=== PATIENT | male | born 1990 | race Caucasian/White ===

== ENCOUNTER 2018-07-18 19:53 | Emergency (ER) | payer BC, SELFPAY ==
[2018-07-18 19:53] VITALS: BP 123/84; PULSE 114; RESP 16; TEMP 36.6; O2SAT 95; BMI 32.1
[2018-07-18] MEDS: HYDROcodone Bitartrate/Apap 5/325 Tablet PO (20:50)
[2018-07-18] MEDS: Naproxen 500 MG Tablet PO (20:51)
--- NOTE | 2018-07-18 21:11 | ED.VISSUMM ---
- ER Visit Summary Date of Service: 07/18/18 Chief Complaint: Left wrist pain History of Present Illness: The patient is a 27 M who has no primary care physician. He reports that he went to catch a baseball and his left wrist twisted awkwardly in the fence. He has a sharp, burning pain that is 10 out of 10 with movement 8 out of 10 at rest. Denies any paresthesias or weakness. Physical Examination: Vitals: Stable. Afebrile. Neck: No vertebral tenderness. Full ROM without difficulty. Cleared by NEXUS criteria. Back: No vertebral tenderness. General: A&O x 3. NAD. Cardiovascular exam: Regular rate and rhythm, no murmur, rub or gallop. Respiratory exam: Chest nontender. No crepitus. Clear to auscultation bilaterally. No wheezes or stridor. Abdominal exam: Soft, nontender, nondistended, normal bowel sounds. No pain in RUQ or LUQ specifically. No peritoneal signs. Extremity: Mild tenderness palpation over the dorsum of his forearm on the radial side. Moderate touch palpation is diffuse over the carpal bones. No soft tissue swelling or contusion. He is neurovascular intact distally. Test Results: Left wrist and forearm x-rays are negative. Emergency Department Course and Treatment: Patient was treated with [place] p.o. and placed in a Velcro wrist splint. Treatment Plan: Patient be discharged instructions for Dr. Dorian Velez in 1 week if not improving. He will be placed on naproxen at home. Disposition: To home in improved and stable condition. Impression: 1. Left wrist sprain. This note was generated with [employer] dictation software. It may contain incorrect words, spelling, and punctuation that were not noted in review of the chart prior to signing ED Disposition - Plan for ED Patient: Disposition: Home or Assisted Living Chief Complaint: Upper Extremity Injury Instructions: ED Sprain Wrist Prescriptions: Naproxen [Naprosyn] 500 mg PO BID #14 tablet Referrals: Dorian Velez MD [STAFF PHYSICIAN] - 1 Week if not improving
[2018-07-18 21:23] VITALS: BP 120/77; PULSE 87; RESP 16; O2SAT 97
== END 2018-07-18 21:35 | disposition home or self-care (01) ==
PROVIDERS: Emergency Provider Emergency Medicine
DX: S63.502A Unspecified sprain of left wrist, initial encounter (principal); X50.1XXA Overexertion from prolonged static or awkward postures, initial encounter; Y93.64 Activity, baseball; Y92.9 Unspecified place or not applicable; Y99.9 Unspecified external cause status
CPT/HCPCS: 73090; 73110; 99284

== ENCOUNTER 2019-12-20 23:34 | Emergency (ER) | payer BC, SELFPAY ==
[2019-12-20 23:35] VITALS: BP 131/79; PULSE 66; RESP 18; TEMP 36.8; O2SAT 98; BMI 33.7
--- NOTE | 2019-12-20 23:51 | US_ITS ---
STUDY: SCROTUM ULTRASOUND REASON FOR EXAM: Male, 29 years old. RT TESTICLE PAIN X 2 WEEKS NO SWELLING TECHNIQUE: Ultrasound evaluation of the scrotum was performed with color Doppler and static castaneda-scale imaging. COMPARISON: None. FINDINGS: RIGHT TESTICLE INTRATESTICULAR: There is a normal size of the right testicle. The right testicle measures 4.5 x 2.6 x 2 cm. There is a homogenous echotexture. There is normal arterial and normal venous vascularity. There is no demonstrated right testicular mass or cyst. EXTRATESTICULAR: The epididymis is normal in size. The epididymis head measures 0.9- x 0.8 x 0.6 cm. There is normal vascularity of the epididymis. There is no demonstrated epididymal cystic structure. There is a minimal hydrocele. There is no demonstrated varicocele. There is no demonstrated extratesticular mass or cyst. LEFT TESTICLE INTRATESTICULAR: There is a normal size of the left testicle. The left testicle measures 4.2 x 2.6 x 2.2 cm. There is a homogenous echotexture. There is normal arterial and normal venous vascularity. There is no demonstrated left testicular mass or cyst. EXTRATESTICULAR: The epididymis is normal in size. The epididymis head measures 0.9 x 0.9 x 0.6 cm. There is normal vascularity of the epididymis. There is a 3 mm cyst within the epididymis. There is no demonstrated hydrocele. There is a small varicocele.. There is no demonstrated extratesticular mass or cyst. US/Testicular with Arterial Flow IMPRESSION: Minimal right hydrocele 3 mm left epididymal cyst Small left varicocele Electronically Signed: Josef Maloney, at 0:42 EST Tel , Service support ,
--- NOTE | 2019-12-20 23:53 | ED.DCSUM_ITS ---
History of Present Illness Chief Complaint: Male Pain/Injury Narrative: Patient presents for the evaluation of right testicular pain. Patient states that symptoms began couple weeks ago and been intermittent. He denies any trauma. He denies any urinary symptoms such as dysuria or frequency. Denies fevers swelling or drainage. He states today the pain is been constant and unrelenting. He states that it is worse than it has been. He notes he had a prior right inguinal hernia repair when he was in high school. He is sexually active in a monogamous relationship. Past Medical History - Allergies and Home Meds Allergies/Adverse Reactions: Allergies morphine Allergy (Verified 12/20/19 23:37) Hives Primary Care Physician: Care Physician,No Primary [NON-STAFF] - Smoking Status: Never smoker Review of Systems General: Denies: Chills, Fever, Sweats Eyes: Denies: Visual changes - bilaterally, Diplopia ENT: Denies: Rhinorrhea, Sore throat Cardiovascular: Denies: Chest pain, Palpitations Respiratory: Denies: Dyspnea, Cough, Dyspnea on exertion Gastrointestinal: Denies: Abdominal pain, Nausea, Vomiting, Diarrhea, Melena, Hematochezia Genitourinary: Reports: - - Right testicular pain. Denies: Dysuria, Hematuria, Frequency Musculoskeletal: Denies: Back pain, Extremity Pain Skin: Denies: Rash, Wounds Neurological: Denies: Headache, Weakness, Numbness Physical Exam Vital Signs/Narrative: Vital Signs Temp Pulse Resp BP Pulse Ox 12/20/19 23:35 98.2 F 66 18 131/79 H 98 Inital Vital Signs reviewed: Yes General: Well nourished, Well developed, No Acute Distress Head: Normocephalic, Atraumatic Eyes: Perrl, EOMI ENT: Moist mucous membranes, No rhinorrhea Neck: Supple, Nontender Cardiovascular: Regular rate, Regular rhythm, No murmurs Respiratory: No distress, CTA bilaterally, Chest nontender Abdomen: Soft, Nontender, Nondistended, Normal bowel sounds : - - Patient reports tenderness to palpation of the right testicle particularly lateral and posteriorly. There is no obvious inguinal hernia felt. No drainage from the meatus. No significant swelling. Back: Nontender, Normal Inspection Extremities: Nontender, No edema Skin: Normal color, No rash Neurological: Alert, Oriented x3, Cranial nerves II-XII grossly intact, Normal Strength, Normal Sensation Psychological: Normal affect, Normal Mood Diagnostic/Tx/Re-eval - Medical Decision Making Patient received Toradol and [place]. Later he received a dose of Cipro. Urine specimen is normal. Ultrasound shows adequate blood flow to both testes. No increased flow to the epididymis or the testicles. There is a small hydrocele on the right. Clinically the patient presents as epididymitis will treat with Cipro. He has no risk factors for STD. Nor does he have any signs such as penile drainage or lesions. He will follow-up with Dr. Sprague from urology. He was instructed on ice and briefs. Scheduled anti-inflammatories. ED Disposition - Plan for ED Patient: Disposition: Home or Assisted Living Diagnosis: Right testicular pain Instructions: Epididymitis Prescriptions: Ciprofloxacin [Cipro] 500 mg PO BID #20 tab Prescription Printed Ibuprofen [Motrin] 800 mg PO TID #21 tab Prescription Printed Hydrocodone Bitart/Apap 5-325 [[place] 5MG-325MG] 1 tab PO Q6H PRN PRN 3 Days #12 tab PRN Reason: Pain Prescription Printed Referrals: Jamal Sprague MD [STAFF PHYSICIAN] - As soon as possible
[2019-12-21 00:10] LABS: Bacteria 0 SEEN /hpf (None Seen); Mucous, Urine 0 SEEN /hpf (<or=2+)
[2019-12-21] MEDS: HYDROcodone Bitartrate/Apap 5/325 Tablet PO (00:10)
[2019-12-21] MEDS: Ketorolac 60 MG/2 ML Vial IM (00:11)
[2019-12-21 00:13] LABS: Color, Urine Yellow (Yellow); Glucose, Dipstick Normal (Normal); Ketone-Dipstick 5 mg/dl (Negative); Leukocyte Esterase-Dipstick Negative /ul (Negative); Nitrite-Dipstick Negative (Negative); Occult Blood-Urine Negative /ul (Negative); Protein-Dipstick Negative (Negative); Specific Gravity, Urine 1.025 (1.002-1.030); Urine Bilirubin Dipstick Negative (Negative); Urine Clarity Clear (Clear); Urine Urobilinogen Normal (Normal)
[2019-12-21 00:20] LABS: Red Blood Cells-Urine 0-5 SEEN /hpf (0-5); Squamous Epithelial Cells - UA 0-5 SEEN /hpf (0-5); White Blood Cells 0-5 SEEN /hpf (0-5)
[2019-12-21] MEDS: Ciprofloxacin 500 MG Tablet PO (01:34)
[2019-12-21 01:40] VITALS: RESP 16
== END 2019-12-21 01:42 | disposition home or self-care (01) ==
LOC: ED 12-21 00:12
PROVIDERS: Emergency Provider Emergency Medicine; PCP Family Medicine; Referring Provider Family Medicine
DX: N50.811 Right testicular pain (principal); N43.3 Hydrocele, unspecified; Z88.5 Allergy status to narcotic agent
CPT/HCPCS: 76870; 81001; 93976; 96372; 99283

== ENCOUNTER → 2023-09-26 | Outpatient (CLI) | payer BC, SELFPAY ==
--- NOTE | 2023-09-26 10:15 | MRI_ITS ---
STUDY: MRI LUMBAR SPINE WITHOUT CONTRAST REASON FOR EXAM: Male, 32 years old. pain TECHNIQUE: Standardized fat and water weighted pulse sequences were obtained in the sagittal and axial planes. COMPARISON: X-ray the lumbar spine dated September 05, 2023 FINDINGS: Normal lumbar lordosis. There is no substantial scoliosis. Normal conus medullaris that terminates at the T12-L1 level. No marrow edema or fracture or compression deformity is seen. T12-L1: Normal endplates. Normal disc height, hydration and morphology. Normal bilateral facet joints. Normal central canal and bilateral lateral recesses. Normal bilateral intervertebral neural foramina. L1-2: Normal endplates. Normal disc height, hydration and morphology. Normal bilateral facet joints. Normal central canal and bilateral lateral recesses. Normal bilateral intervertebral neural foramina. L2-3: Normal endplates. Normal disc height, hydration and morphology. Normal bilateral facet joints. Normal central canal and bilateral lateral recesses. Normal bilateral intervertebral neural foramina. L3-4: Normal endplates. Normal disc height, hydration and morphology. Normal bilateral facet joints. Normal central canal and bilateral lateral recesses. Normal bilateral intervertebral neural foramina. L4-5: Mild anterior endplate spurring. Mild disc desiccation and disc space narrowing without bulging or herniation of the disc. Normal bilateral facet joints. Normal central canal and bilateral lateral recesses. Normal bilateral intervertebral neural foramina. L5-S1: Normal endplates. Normal disc height, hydration and morphology. Normal bilateral facet joints. Normal central canal and bilateral lateral recesses. Normal bilateral intervertebral neural foramina. Normal visualized sacral ala. Normal visualized paraspinous soft tissue structures. MRI/Spine Lumbar (Routine) IMPRESSION: 1. Mild degenerative disc disease at L4-L5. Electronically Signed: Arnoldo Cardoso MD at 14:49 EST ,
--- NOTE | 2023-09-26 12:51 | VDLE_ITS ---
Reason For Study: BLE Pain RIGHT LEFT CFV is compressible, spontaneous, phasic, CFV is compressible, phasic, and INCOMPETENT competent and demonstrates normal for greater than 1.0 second. augmentation. FV is compressible, phasic, and INCOMPETENT FV is compressible, spontaneous, phasic, for greater than 1.0 second. competent and demonstrates normal POP V is compressible, spontaneous, phasic, augmentation. competent and demonstrates normal POP V is compressible, spontaneous, phasic, augmentation. competent and demonstrates normal T/P Trunk is compressible. augmentation. PTV is compressible. T/P Trunk is compressible. LT PerV is compressible. PTV is compressible. SFJ is INCOMPETENT and measures 1.10 cm. RT PerV is compressible. GSV proximal thigh measures 1.16 x 1.25 cm. SFJ is INCOMPETENT and measures 0.99 cm. GSV at knee measures 1.02 x 1.11 cm. GSV proximal thigh measures 0.94 x 0.90 cm. GSV INCOMPETENT throughout for greater than GSV at knee measures 0.87 x 0.95 cm. 0.5 seconds. GSV INCOMPETENT throughout for greater than Perforating vessel dist calf is INCOMPETENT 0.5 seconds. for greater than 0.5 seconds and measures ASV proximal calf is INCOMPETENT for greater 0.60cm. than 0.5 seconds and measures 0.82 x 1.01 cm. Multiple varicosities noted throughout thigh ASV mid calf is INCOMPETENT for greater than and calf. 0.5 seconds and measures 0.61 x 0.70 cm. SSV proximal calf is competent and measures Perforating vessel dist calf is INCOMPETENT 0.54 x 0.57 cm. for greater than 0.5 seconds and measures 0.53cm Multiple varicosities noted throughout calf. SSV proximal calf is INCOMPETENT for greater than 0.5 seconds and measures 0.67 x 0.86 cm. Procedure Exam performed in department. The exam was diagnostic. VL/Venous Duplex US - Atilio Extrem Interpretation Summary Deep veins of the bilateral lower extremities are patent and compressible segme ntally. There is no evidence of bilateral lower extremity deep vein thrombosis. The bilateral great saphenous veins appear patent and compressible segmentally. Positive for reflux in the right saphenofemoral junction, great saphenous vein throughout, accessory saphenous vein in the calf, small saphenous vein. Positive for reflux in the left common femoral vein, femoral vein, saphenofemor al junction, great saphenous vein throughout, and distal calf slipcover cutter Ordering Physician: Rebecca Moore Referring Physician: Grey Rosenbaum Performed By: Sal Arevalo RVT
== END | disposition home or self-care (01) ==
LOC: MRI 09:43
PROVIDERS: PCP Family Medicine; Referring Provider Orthopaedic Surgery; Visit Provider Orthopaedic Surgery
DX: I83.893 Varicose veins of bilateral lower extremities with other complications (principal)
CPT/HCPCS: 72148; 93970

== ENCOUNTER 2024-01-05 06:35 | Day surgery (SDC) | payer BC, OTHER, SELFPAY ==
[2024-01-04 07:30] VITALS: BMI 36.6
--- OUTSIDE RECORDS SUMMARY | 2024-01-05 06:46 | XMS RPT_ITS | CCD ---
Author Name Unknown Address [address] [place] [address] Organization [facility] Care Team Providers Care Transportation Inspector Name Role Phone Pete Starks Unavailable Jamie Emanuel Unavailable Pete Starks MD Primary Care Provider [phone] Pete Starks MD Primary Care Provider Pete Starks MD Primary Care Provider PETE STARKS Primary Care Unavailable ZACHARY BRANNON Attending Unavailab le Allergies Allergy Classification Reported Allergen(s) Allergy Type Date of Onset Reaction(s) Facility Opioid Agonists (1 source) Morphine Drug Allergy Hives/Urticaria [facility] (9 sources) Morphine; Translations: [MORPHINE] Drug Allergy 04-10-2008 Hives [facility] Work Phone: Medications Current Medications Medication Drug Class(es) Dates Sig (Normalized) Sig (Original) ketorolac tromethamine 10 mg oral tablet (2 sources) Nonsteroidal Anti-inflammatory Drug, Cyclooxygenase Inhibitor Start: 08-29-2023 End: 09-03-2023 take 1 tablet by mouth every six hours for pain ketorolac (Toradol) 10 mg tablet Indications: Closed fracture of transverse process of lumbar vertebra, initial encounter ([facility]) , Lumbar radiculopathy Take 1 tablet (10 mg) by mouth every 6 hours if needed for moderate pain (4 - 6) for up to 5 days. 20 tablet 0 08/29/2023 09/03/2023 Active Completed/Discontinued Medications Medication Drug Class(es) Dates Sig (Normalized) Sig (Original) ibuprofen 600 mg oral tablet (1 source) Nonsteroidal Anti-inflammatory Drug Start: 11-03-2020 take 1 tablet by mouth every six hours IBU 600 mg oral tablet ; 1 tab(s) orally every 6 hours Quantity: 20 Refills: 0 Ordered: 03-Nov-2020 Cynthia Cheney Start: 03-Nov-2020 Generic Substitution Allowed Comments: Do not take this drug if you are .It is very important that you take or use this exactly as directed. Do not skip doses or discontinue unless directed by your doctor.May cause drowsiness or dizziness.Obtain medical advice before taking any non-prescription drugs as some may affect the action of this medication.Take with food or milk. Problems Active Problems Problem Classification Problem Date Documented Da te Episodic/Chronic Nonspecific chest pain (1 source) Chest pain; Translations: [Chest pain, unspecified] Episodic Other fractures (1 source) Closed fracture lumbar vertebra, transverse process ; Translations: [Unspecified fracture of unspecified lumbar vertebra, initial encounter for closed fracture] 08-29-2023 Episodic Other lower respiratory disease (1 source) Dyspnea; Translations: [Shortness of breath] Episodic Superficial injury; contusion (1 source) Contusion of scalp; Translations: [Contusion of face, scalp, and neck except eye(s)] 04-07-2021 Episodic Unclassified (2 sources) HEAD INJURY WITH NO LOC 04-07-2021 Past or Other Problems Problem Classification Problem Date Documented Da te Episodic/Chronic Spondylosis; intervertebral disc disorders; other back problems (8 sources) Chronic low back pain; Translations: [Chronic midline low back pain without sciatica] Onset: 05-18-2019 05-18-2019 Episodic Varicose veins of lower extremity (8 sources) Varicose veins of left lower limb; Translations: [Asymptomatic varicose veins of left lower extremity] Onset: 05-02-2012 Episodic Results Test Name Value Interpretation Reference Range Facil ity Vital Signs Date Time Vital Sign Value Performing Clinician Facility 08-29-2023 03:42-0400 Diastolic blood pressure 78 mm[Hg] Gianni Mccurdy DO Work Phone: [facility] 08-29-2023 03:42-0400 Heart rate 73 /min Gianni Mccurdy DO Work Phone: [facility] 08-29-2023 03:42-0400 Respiratory rate 18 /min Gianni Mccurdy DO Work Phone: [facility] 08-29-2023 03:42-0400 SaO2% (BldA) [Mass fraction] 95 % Gianni Mccurdy DO Work Phone: [facility] 08-29-2023 03:42-0400 Systolic blood pressure 113 mm[Hg] Gianni Mccurdy DO Work Phone: [phone] [place] [address] 08-29-2023 00:55-0400 Body height 180.3 cm Gianni Mccurdy DO Work Phone: [phone] [place] [address] 08-29-2023 00:55-0400 Body mass index (BMI) [Ratio] 36.26 kg/m2 Gianni Mccurdy DO Work Phone: [phone] [place] [address] 08-29-2023 00:55-0400 Body temperature 97.9 [degF] Gianni Mccurdy DO Work Phone: [phone] [place] [address] 08-29-2023 00:55-0400 Body weight 117.94 kg Gianni Mccurdy DO Work Phone: [phone] [place] [address] 03-17-2022 18:45-0400 Body temperature 97.9 [degF] Radha Podlogar RACK PUSHER.YARDER ENGINEER Work Phone: [facility] 03-17-2022 18:45-0400 Body weight 115.12 kg Radha Podlogar RACK PUSHER.YARDER ENGINEER Work Phone: [facility] 03-17-2022 18:45-0400 Diastolic blood pressure 78 mm[Hg] Radha Podlogar RACK PUSHER.YARDER ENGINEER Work Phone: [facility] 03-17-2022 18:45-0400 Heart rate 68 /min Radha Podlogar RACK PUSHER.YARDER ENGINEER Work Phone: [facility] 03-17-2022 18:45-0400 Respiratory rate 20 /min Radha Podlogar RACK PUSHER.YARDER ENGINEER Work Phone: [facility] 03-17-2022 18:45-0400 SaO2% (BldA) [Mass fraction] 98 % Radha Podlogar RACK PUSHER.YARDER ENGINEER Work Phone: [facility] 03-17-2022 18:45-0400 Systolic blood pressure 112 mm[Hg] Radha Scott APRN.YARDER ENGINEER Work Phone: [facility] Encounters Encounter Date Encounter Type Care Provider Facility Start: 09-29-2023 Chart abstracting Pete johns MD Work Phone: [facility] Start: 09-27-2023 Chart abstracting Pete johns MD Work Phone: [facility] Procedures Date Procedure Procedure Detail Performing Clinician Start: 08-29-2023 Ct lumbar spine w/o contrast material Gianni Roe Kaz PRICE Work Phone: Start: 08-15-2019 Adult depression screening assessment Radha Scott APRN.YARDER ENGINEER Work Phone: Plan of Treatment Date Care Activity Detail Author Start: 2041 Zoster Vaccines (1 of 2) Zoste r Vaccines (1 of 2) [facility] Start: 07-22-2023 Influenza vaccination Influenza Vacc ine (#1) [facility] Start: 11-21-2022 Depression Assessment Depression Ass essment [facility] Start: 07-22-2022 Influenza vaccination INFLUENZ A (Season Ended) [facility] Start: 03-17-2022 End: 05-17-2022 Fibrin D-dimer FEU [Mass/volume] in Platelet poor plasma D-DIMER Lab Routine SOB (shortness of breath) Expected: 03/17/2022, Expires: 05/17/2022 [facility] Work Phone: Immunizations Immunization Date Immunization Notes Care Provider Julien key 02-03-2017 influenza virus vaccine, unspecified formulation Zachary Brannon MD Work Phone: [facility] 08-23-2009 influenza virus vaccine, unspecified formulation Radha Scott RACK PUSHER.YARDER ENGINEER Work Phone: [facility] Work Phone: 09-26-2008 influenza virus vaccine, unspecified formulation Radha Scott RACK PUSHER.YARDER ENGINEER Work Phone: [facility] Work Phone: 06-16-1993 diphtheria, tetanus toxoids and pertussis vaccine Radha Podlogar RACK PUSHER.[facility] Work Phone: [facility] Work Phone: 06-16-1993 trivalent poliovirus vaccine, live, oral Radha Podlogar RACK PUSHER.[facility] Work Phone: [facility] Work Phone: 03-17-1993 haemophilus influenz ae type b vaccine, HbOC conjugate Radha Podlogar RACK PUSHER.[facility] Work Phone: [facility] Work Phone: 03-17-1993 measles, mumps and rubella virus vaccine Radha Podlogar RACK PUSHER.[facility] Work Phone: [facility] Work Phone: 06-16-1992 diphtheria, tetanus toxoids and pertussis vaccine Radha Podlogar RACK PUSHER.[facility] Work Phone: [facility] Work Phone: 06-16-1992 haemophilus influenz ae type b vaccine, HbOC conjugate Radha Podlogar RACK PUSHER.[facility] Work Phone: [facility] Work Phone: 04-17-1992 diphtheria, tetanus toxoids and pertussis vaccine Radha Podlogar RACK PUSHER.[facility] Work Phone: [facility] Work Phone: 04-17-1992 haemophilus influenz ae type b vaccine, HbOC conjugate Radha Podlogar RACK PUSHER.[facility] Work Phone: [facility] Work Phone: 04-17-1992 trivalent poliovirus vaccine, live, oral Radha Podlogar RACK PUSHER.[facility] Work Phone: [facility] Work Phone: 02-14-1992 diphtheria, tetanus toxoids and pertussis vaccine Radha Podlogar RACK PUSHER.[facility] Work Phone: [facility] Work Phone: 02-14-1992 haemophilus influenz ae type b vaccine, HbOC conjugate Radha Podlogar RACK PUSHER.YARDER ENGINEER Work Phone: [facility] Work Phone: 02-14-1992 trivalent poliovirus vaccine, live, oral Radha Podlogar RACK PUSHER.YARDER ENGINEER Work Phone: [facility] Work Phone: Payers Date Payer Category Payer Unknown [id number] 2022 Unknown 2019 Unknown [employer] PPO OOS [id number] 2019-Present [phone] [address] [place] [address] PPO [id number] Social History Date Type Detail Facility [facility] Tobacco smoking consumption unknown [facility] Start: 08-29-2023 Tobacco smoking stat [facility] Never smoked tobacco [facility] Start: 10-15-2020 End: 08-29-2023 Alcohol intake Current non-drinker of alcohol (finding) [facility] Start: 1990 Sex Assigned At Not on file [facility] Start: 03-07-2022 End: 03-17-2022 Exposure to SARS-CoV-2 (event) Unable to assess [facility] Work Phone: Start: 08-29-2023 Tobacco use and exposure Smokeless tobacco non-user [facility] Work Phone: Start: 08-29-2023 Alcohol intake Ex-drinker (finding) [facility] Work Phone: Start: 10-28-2020 End: 08-29-2023 Gender identity Not on file [facility] Start: 08-19-2023 End: 08-29-2023 Exposure to SARS-CoV-2 (event) Not sure [facility] Work Phone: Start: 10-28-2020 End: 08-29-2023 History of Social function [facility] Adult Depression Screening Assessment 0 [facility] Clinical Notes 03-17-2022 to 09-29-2023 Gretchen Davila Ma - 09/29/2023 10:24 AM Mark Bowles LPN - 09/27/2023 10:09 AM Svetlana Rodriguez LPN - 09/15/2023 4:29 PM Mark Winchester LPN - 09/06/2023 9:47 AM EDT Note Date & Type Note Facility 09-29-2023 Note HNO ID: [id number] Author: Gretchen Davila Ma Service: ? Author Type: ? Type: Progress Notes Filed: 09/29/2023 11:50 AM Note Text: View External Imaging - venous duplex US bilateral [ID [id number]] [facility] 09-29-2023 History of Presen t illness Narrative View External Imaging - venous duplex US bilateral [ID [id number]] documented in this encounter [facility] 09-27-2023 Note HNO ID: [id number] Author: Mark Brooke LPN Service: ? Author Type: ? Type: Progress Notes Filed: 09/29/2023 8:57 AM Note Text: Scan on 09/26/2023 2:54 PM by ProviderFrancis PA-C: MRI [facility] 09-27-2023 History of Presen t illness Narrative Scan on 09/26/2023 2:54 PM by ProviderFrancis PA-C: MRI documented in this encounter [facility] 09-15-2023 Note HNO ID: [id number] Author: Svetlana Robert LPN Service: ? Author Type: ? Type: Progress Notes Filed: 09/15/2023 4:29 PM Note Text: Scan on 09/15/2023 3:48 PM by ProviderFrancis PA-C: Consultation - Vascular Medicine/Vascular Surgery [facility] 09-15-2023 History of Presen t illness Narrative Scan on 09/15/2023 3:48 PM by ProviderFrancis PA-C: Consultation - Vascular Medicine/Vascular Surgery documented in this encounter [facility] 09-06-2023 Note HNO ID: [id number] Author: Mark Brooke LPN Service: ? Author Type: ? Type: Progress Notes Filed: 09/06/2023 8:57 PM Note Text: Scan on 09/05/2023 1:26 PM by ProviderFrancis PA-C: Consultation - Orthopedics [facility] 09-06-2023 History of Presen t illness Narrative Scan on 09/05/2023 1:26 PM by ProviderFrancis PA-C: Consultation - Orthopedics documented in this encounter [facility] 08-31-2023 Miscellaneous Notes Spoke with patient. Given message from provider's office. Patient verbalizes understanding. Mimi Cr RN Letter sent to [facility]. Written to return to work on 09/06 due to continued pain. 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 Will forward to PCP as FYI Patient calling to ask Dr. Brannon for work excuse letter for the rest of this week until he sees Dr. Turner, Spinal Surgery on Wednesday 09/05. He states he went back to work last night and was given a light duty assignment but after working his full shift his back pain is 7-8/10 after taking pain Prednisone and Tylenol. He is taking two extra strength Tylenol 500 mg every 6 hours with little relief. If agree, can send letter through My Chart. Mimi Cr, RN Patient is calling back in regards to this I did advise 48-72 hrs to review messaes Pt called and is notified of providers message and instructions. Pt states he already knows what he would have to do for light duty. 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 He states he doesn't know if he could stand it with his back hurting the way it still is. He is asking if provider would give him an excuse to have off this week until he gets to see Dr Turner. Please call and advise. Ana Bell RN I would have him speak with his employer about light duty. Pt had OV 08/29/23 for lower back pain. Pt reports he was given a work excuse to go back to work tonight (10 pm shift). Pt reports he sees neurology on 09/05/23. Pt reports he is still having a lot of back pain and walking is uncomfortable. Pt was given excuse to return to work on light duty. Pt reports there is a lot of lifting with job and nothing is necessarily light duty. Pt is concerned he will return to work and will have to do regular work and will mess up his back more. Pt is asking if work excuse can be extended. Please review and advise. Call pt back with provider message. Germania Whyte LPN documented in this encounter [facility] 08-29-2023 Note HNO ID: [id number] Author: Zachary Brannon MD Service: ? Author Type: Physician Type: Progress Notes Filed: 08/29/2023 9:02 PM Note Text: Chief Complaint Patient presents with: ER F/U: Needing referral for neuro surgeon HPI Cuate Sabillon II is a 32 year old male who presents here today for ER Follow Up.. Patient evaluated at ER in [place] last night and early this morning for c/o progressive right uppler lumbosacral region pain for about 1 week without pain or injury. Found to have chronic appearing fragmentation of right transfverse process of L1 vertebra with at least partially corticated margins. Transverse process fragment displaced superior and anterior to and abutting anterolateral egde of the right transverse process-pedicle junction. Could represent chronic fracture vs unfused apophysis. Also noted tiny central disc protrusion at L5-S1. Discharged home with toradol, medrol pack. Recommended he follow up with our office for neurosurgical referral. Since discharge, continues to have pain in his right lower back without radiation down his legs. Currently 01/28. Has not taken any prescribed rx today. Denies loss of bowel/bladder control, numbness in his groin, weakness in his legs. Denies history of MVA or high velocity injury to his lower back. Past medical history, appointments, medications, allergies reviewed. Previous Medical History PAST MEDICAL HISTORY Diagnosis Date Chronic midline low back pain without sciatica 05/18/2019 Inguinal hernia without mention of obstruction or gangrene, unilateral or unspecified, (not specified as recurrent) Methicillin susceptible Staphylococcus aureus in conditions classified elsewhere and of unspecified site 04/04/2008 Varicose veins of both lower extremities with pain 05/02/2012 Previous Surgical History PAST SURGICAL HISTORY Procedure Laterality Date LAPAROSCOPY SURG RPR INITIAL INGUINAL HERNIA 04/08/08 RIGHT Family History FAMILY HISTORY Problem Relation Age of Onset Diabetes Mother Hypertension Mother Lipids Mother Heart Father other (varicose veins) Father Patient Allergies ALLERGIES Allergen Reactions Morphine Hives Current Medications No current outpatient medications on file prior to visit. No current facility-administered medications on file prior to visit. Social History Social History Tobacco Use Smoking status: Never Smokeless tobacco: Never Substance Use Topics Alcohol use: No Drug use: No Review of Symptoms REVIEW OF SYSTEMS See HPI EXAM: BP 110/82 Pulse 86 Resp 16 Wt 119.6 kg (263 lb 9.6 oz) SpO2 95% BMI 36.76 kg/m? General Appearance: Well appearing, alert, in no acute distress, well-hydrated, well nourished.. Skin: Skin color, texture, turgor normal, no suspicious rashes or lesions. Back:no pain to palpation of vertebrae, good flexion and extension, good range of motion, no muscle tenderness, reflexes are 2+ and symmetric, motor and sensory appear to be normal, no evidence of scoliosis, Positive SLR on right. Health Maintenance List Hepatitis B Vaccine(1 of 3 - 3-dose series) Never done Covid-19 Vaccine(1) Never done DTaP,Tdap,Td Vaccine(5 - Tdap) due on 2002 Hepatitis C Screening Never done Depression Assessment Never done Influenza Vaccine(1) due on 07/22/2023 HIV Screening Completed HPV Vaccine Aged Out ASSESSMENT/PLAN: 1. Chronic right-sided low back pain without sciatica - ICD9: 724.2, 338.29, ICD10: M54.50, G89.29 (primary diagnosis) Chronic lower back pain with evidence of chronic transverse process fracture without cauda equina symptoms. Discussed holding NSAID while on steroids. Will refer to ortho spine Dr. Turner for further evaluation. Red flags for re-assessment reviewed with patient in detail. - CONSULT TO NEUROSURGERY - [facility] 2. Closed fracture of transverse process of lumbar vertebra, initial encounter ([facility]) - ICD9: 805.4, ICD10: S32.009A See above. - CONSULT TO NEUROSURGERY - [facility] Zachary Brannon MD [facility] 08-29-2023 Emergency department Note 32-year-old male presents with progressive pain in upper lumbosacral region on the right. Patient states he has had chronic back issues but the symptoms have worsened over the last several days. Patient denies any injury or heavy lifting. Patient denies any numbness or paresthesia. Patient denies any fever or chills. Patient denies any dysuria or hematuria. Patient was given Toradol 30 mg IM with some moderate improvement. I did go over the CAT scan findings with the patient. Patient will be discharged. History provided by: Patient and significant other gastrointestinal technician used: No Review of Systems Musculoskeletal: Positive for back pain. All other systems reviewed and are negative. Physical Exam Vitals and nursing note reviewed. Constitutional: General: He is not in acute distress. Appearance: He is well-developed. HENT: Head: Normocephalic and atraumatic. Eyes: Conjunctiva/sclera: Conjunctivae normal. Cardiovascular: Rate and Rhythm: Normal rate and regular rhythm. Heart sounds: No murmur heard. Pulmonary: Effort: Pulmonary effort is normal. No respiratory distress. Breath sounds: Normal breath sounds. Abdominal: Palpations: Abdomen is soft. Tenderness: There is no abdominal tenderness. Musculoskeletal: General: Tenderness (pain left lower lumbosacral region lateral to L1 and 2.) present. No swelling. Cervical back: Neck supple. Skin: General: Skin is warm and dry. Capillary Refill: Capillary refill takes less than 2 seconds. Neurological: Mental Status: He is alert. Psychiatric: Mood and Affect: Mood normal. Labs Reviewed - No data to display CT lumbar spine wo IV contrast Final Result There is chronic appearing fragmentation of the right transverse process of the L1 vertebra, with at least partially corticated margins and normal surrounding soft tissues, with the transverse process fragment displaced superior and anterior to and abutting the anterolateral edge of the right transverse process-pedicle junction (series 2, images 31-35; series 5, images 54-58); this could represent chronic fracture versus unfused apophysis. No evidence of acute fracture. Minor facet osteoarthropathy at L4-L5 and L5-S1. Trace degenerative retrolisthesis at L5-S1. Tiny central disc protrusion at L5-S1 without canal or foraminal narrowing. MACRO: None Signed by: Erik Brunson 08/29/2023 2:52 AM Dictation workstation: [id number] CT lumbar spine wo IV contrast Final Result There is chronic appearing fragmentation of the right transverse process of the L1 vertebra, with at least partially corticated margins and normal surrounding soft tissues, with the transverse process fragment displaced superior and anterior to and abutting the anterolateral edge of the right transverse process-pedicle junction (series 2, images 31-35; series 5, images 54-58); this could represent chronic fracture versus unfused apophysis. No evidence of acute fracture. Minor facet osteoarthropathy at L4-L5 and L5-S1. Trace degenerative retrolisthesis at L5-S1. Tiny central disc protrusion at L5-S1 without canal or foraminal narrowing. MACRO: None Signed by: Erik Brunson 08/29/2023 2:52 AM Dictation workstation: [id number] Procedures Diagnoses as of 08/29/23325 Closed fracture of transverse process of lumbar vertebra, initial encounter ([facility]) Lumbar radiculopathy Medical Decision Making Patient can take medication as prescribed. He has been instructed to speak to his family doctor for neurosurgical referral. If symptoms worsen return to ED. Problem List Items Addressed This Visit None Visit Diagnoses Closed fracture of transverse process of lumbar vertebra, initial encounter ([facility]) - Primary Relevant Medications ketorolac (Toradol) 10 mg tablet methylPREDNISolone (Medrol, Valdo,) 4 mg tablets Lumbar radiculopathy Relevant Medications ketorolac (Toradol) 10 mg tablet methylPREDNISolone (Medrol, Valdo,) 4 mg tablets DO Gianni Murray DO 08/29/23325 documented in this encounter [facility] Work Phone: 08-29-2023 Physician Emergency department Note 32-year-old male presents with progressive pain in upper lumbosacral region on the right. Patient states he has had chronic back issues but the symptoms have worsened over the last several days. Patient denies any injury or heavy lifting. Patient denies any numbness or paresthesia. Patient denies any fever or chills. Patient denies any dysuria or hematuria. Patient was given Toradol 30 mg IM with some moderate improvement. I did go over the CAT scan findings with the patient. Patient will be discharged. History provided by: Patient and significant other gastrointestinal technician used: No Review of Systems Musculoskeletal: Positive for back pain. All other systems reviewed and are negative. Physical Exam Vitals and nursing note reviewed. Constitutional: General: He is not in acute distress. Appearance: He is well-developed. HENT: Head: Normocephalic and atraumatic. Eyes: Conjunctiva/sclera: Conjunctivae normal. Cardiovascular: Rate and Rhythm: Normal rate and regular rhythm. Heart sounds: No murmur heard. Pulmonary: Effort: Pulmonary effort is normal. No respiratory distress. Breath sounds: Normal breath sounds. Abdominal: Palpations: Abdomen is soft. Tenderness: There is no abdominal tenderness. Musculoskeletal: General: Tenderness (pain left lower lumbosacral region lateral to L1 and 2.) present. No swelling. Cervical back: Neck supple. Skin: General: Skin is warm and dry. Capillary Refill: Capillary refill takes less than 2 seconds. Neurological: Mental Status: He is alert. Psychiatric: Mood and Affect: Mood normal. Labs Reviewed - No data to display CT lumbar spine wo IV contrast Final Result There is chronic appearing fragmentation of the right transverse process of the L1 vertebra, with at least partially corticated margins and normal surrounding soft tissues, with the transverse process fragment displaced superior and anterior to and abutting the anterolateral edge of the right transverse process-pedicle junction (series 2, images 31-35; series 5, images 54-58); this could represent chronic fracture versus unfused apophysis. No evidence of acute fracture. Minor facet osteoarthropathy at L4-L5 and L5-S1. Trace degenerative retrolisthesis at L5-S1. Tiny central disc protrusion at L5-S1 without canal or foraminal narrowing. MACRO: None Signed by: Erik Brunson 08/29/2023 2:52 AM Dictation workstation: [id number] CT lumbar spine wo IV contrast Final Result There is chronic appearing fragmentation of the right transverse process of the L1 vertebra, with at least partially corticated margins and normal surrounding soft tissues, with the transverse process fragment displaced superior and anterior to and abutting the anterolateral edge of the right transverse process-pedicle junction (series 2, images 31-35; series 5, images 54-58); this could represent chronic fracture versus unfused apophysis. No evidence of acute fracture. Minor facet osteoarthropathy at L4-L5 and L5-S1. Trace degenerative retrolisthesis at L5-S1. Tiny central disc protrusion at L5-S1 without canal or foraminal narrowing. MACRO: None Signed by: Erik Brunson 08/29/2023 2:52 AM Dictation workstation: [id number] Procedures Diagnoses as of 08/29/23 0326 Closed fracture of transverse process of lumbar vertebra, initial encounter ([facility]) Lumbar radiculopathy Medical Decision Making Patient can take medication as prescribed. He has been instructed to speak to his family doctor for neurosurgical referral. If symptoms worsen return to ED. Problem List Items Addressed This Visit None Visit Diagnoses Closed fracture of transverse process of lumbar vertebra, initial encounter ([facility]) - Primary Relevant Medications ketorolac (Toradol) 10 mg tablet methylPREDNISolone (Medrol, Valdo,) 4 mg tablets Lumbar radiculopathy Relevant Medications ketorolac (Toradol) 10 mg tablet methylPREDNISolone (Medrol, Valdo,) 4 mg tablets DO Gianni Murray DO 08/29/23 0326 [facility] Work Phone: 03-22-2022 Miscellaneous Notes Spoke with pt and information listed below given. Pt verbalizes understanding. Pt states he will get the lab repeated in the next day or two. Drea Edward LPN TC to patient with no answer. Left message to return call to office and ask to speak with a nurse. FRANCISCO J King Called and left a voicemail for the Patient to call back and ask for a nurse to receive the providers message. Ana Bell RN Please call patient and let him know his chest xray is normal. Please ask him if he is going to get his blood work completed? Radha Scott APRN.OLEG documented in this encounter [facility] 03-17-2022 History of Presen t illness Narrative 03/17/2022 Patient presents with: Shortness of Breath: x2 weeks SUBJECTIVE: This is a 31 year old that is here today for Above Complaints.. Reports the last couple weeks having periods of having difficulty catching his breath. Can happen when he is sitting or active. He is concerned he has a pulmonary blood clot because he has varicose veins and he has a family hx of a blood clots. Admits to pain at times with deep inspiration in his right chest and side of abdomen. Admits to periods of right sided chest pain, however he reports this is not new and has had these pains since childhood. Pain described a stabbing and last for a few seconds. Normally resolves after he stretches. Some times he can feel SOB with this chest pain , but it only lasts for seconds as well. Denies recent hx of COVID-19, increasing chest pain from his baseline, dyspnea, jaw/back pain, diaphoresis, palpitations or nausea Clinically suspected DVT? (+3)= 0 Alternative diagnosis is less likely than PE (+3)?= 1 Heart Rate >100bpm? (+1.5)= 0 Immobilization/surgery in previous four weeks? 0 History of DVT or PE (1.5+)=0 Hemoptysis? (+1)=0 Malignancy (treatment for within 6 months, palliative +1)=0 TOTAL SCORE: 1 Interpretation: Traditional Score >6.0 - High (probability 59% based on pooled data) Score 2.0 to 6.0 - Moderate (probability 29% based on pooled data) Score <2.0 - Low (probability 15% based on pooled data) Alternate interpretation Score > 4 - PE likely. Consider diagnostic imaging. Score 4 or less - PE unlikely. Consider D-dimer to rule out PE. PAST MEDICAL HISTORY Diagnosis Date Chronic midline low back pain without sciatica 05/18/2019 Inguinal hernia without mention of obstruction or gangrene, unilateral or unspecified, (not specified as recurrent) Methicillin susceptible Staphylococcus aureus in conditions classified elsewhere and of unspecified site 04/04/2008 Varicose veins of both lower extremities with pain 05/02/2012 ALLERGIES Morphine MEDICATIONS No current outpatient medications on file. No current facility-administered medications for this visit. Medications and allergies reviewed by this provider. SOCIAL HISTORY Social History Tobacco Use Smoking status: Never Smoker Smokeless tobacco: Never Used Substance Use Topics Alcohol use: No Drug use: No REVIEW OF SYSTEMS All other reviewed and negative other than HPI. OBJECTIVE: BP 112/78 Pulse 68 Temp 36.6 C (97.9 F) Resp 20 Wt 115.1 kg (253 lb 12.8 oz) SpO2 98% BMI 35.40 kg/m . Vital signs reviewed by this provider. APPEARANCE Well appearing, alert, in no acute distress, well-hydrated, well nourished. EYES PERRLA, conjunctiva and sclera normal. HEART RRR with normal S1 and S2, no murmurs, no gallops, no JVD appreciated LUNG clear to auscultation. No wheezes, rhonchi, or rales EXTREMITIES Left lower leg larger than right and has scattered large varicose veins- patient reports this is normal. He denies calf tenderness and negative Homans' . There is no erythema or excessive warmth to LLE COVID-19 VACCINE(1) Never done DTAP,TDAP,TD(5 - Tdap) due on 2002 HEPATITIS C SCREENING Never done DEPRESSION SCREENING due on 08/15/2020 INFLUENZA(Season Ended) due on 07/22/2022 HIV SCREENING Completed MENINGOCOCCAL CONJUGATE Aged Out ASSESSMENT/PLAN: 1. SOB (shortness of breath) - ICD9: 786.05, ICD10: R06.02 (primary diagnosis) - no red flag symptoms or exam findings - red flag symptoms discussed, verbalizes understanding - D-DIMER - XR CHEST 2V FRONTAL/LAT - follow-up pending testing to ER with red flag symptoms 2. Chest pain, unspecified type - ICD9: 786.50, ICD10: R07.9 Atypical chest pain, symptoms are not consistent with cardiac ischemia due to nonexertional nature of symptom and localization of the pain possible etiology include Costochondritis/chest wall pain and musculoskeletal - since this is been ongoing for so many years would not think this is related to his shortness of breath - no red flag symptoms or exam findings - red flag symptoms discussed, verbalizes understanding - Electrocardiogram: An ECG today showed sinus bradycardia at 55 BPM, RI interval 178 ms, normal QRS, normal ST-T, QT 431 ms - Chest X-ray today. - follow-up pending testing to ER with red flag symptoms 3. Varicose veins of left lower extremity, unspecified whether complicated - ICD9: 454.9, ICD10: I83.92 - recommend he wear compression hose daily Radha Scott APRN.YARDER ENGINEER Prescription instructions reviewed with patient as applicable. Patient advised if symptoms do not improve or if symptoms worsen sooner, to contact their primary care physician. Potential red flag symptoms discussed with the patient. Reviewed appropriate action plan to take if red flag symptoms occur. Patient agreeable to treatment plan. documented in this encounter [facility] Diagnosis Closed fracture of transverse process of lumbar vertebra, initial encounter ([facility])- Primary Lumbar radiculopathy Thoracic or lumbosacral neuritis or radiculitis, unspecified documented in this encounter [facility] Work Phone: Reason for referral (narrative)* Consultation (Routine) - Pending Review Specialty Diagnoses / Procedures Referred By Christopher gómez Referred To Contact Family Medicine / Primary Care Procedures RI OFFICE/OUTPATIENT NEW HIGH MDM 60-74 MINUTES Gianni Mccurdy, [address] [place] [address] Referral ID Status Reason Start Date Expiration Date Visits Requested Visits Authorized [id number] Pending Review Specialty Services Required 08/29/2023 02/25/2024 1 1 [facility] Work Phone: Summary Purpose Family History No Family History Records FoundNo Family History Records Found Advance Directives No Advanced Directives Records FoundNo Advanced Directives Records Found Additional Source Comments <item> Privacy Markings (unrecogniz ed section and content) Section Author: Nancy Beck PROHIBITION ON REDISCLOSURE OF CONFIDENTIAL INFORMATION This notice accompanies a disclosure of information concerning a client made to you with the consent of such client. (unrecognized sect ion and content) No Status Records FoundNo Status Records Found INFORMATION SOURCE (unrecogn ized section and content) DATE CREATED AUTHOR AUTHOR'S ORGANIZ ATION 10/01/2023 [facility] Source Comments (unrecognize d section and content) In the event this informatio n is protected by the Federal Confidentiality of Alcohol and Drug Abuse Patient Records regulations: The Federal rules restrict any use of the information to criminally investigate or prosecute any alcohol or drug abuse patient.[facility] the event this information is protected by the Federal Confidentiality of Alcohol and Drug Abuse Patient Records regulations: The Federal rules restrict any use of the information to criminally investigate or prosecute any alcohol or drug abuse patient.[facility] the event this information is protected by the Federal Confidentiality of Alcohol and Drug Abuse Patient Records regulations: The Federal rules restrict any use of the information to criminally investigate or prosecute any alcohol or drug abuse patient.[facility] the event this information is protected by the Federal Confidentiality of Alcohol and Drug Abuse Patient Records regulations: The Federal rules restrict any use of the information to criminally investigate or prosecute any alcohol or drug abuse patient.[facility] the event this information is protected by the Federal Confidentiality of Alcohol and Drug Abuse Patient Records regulations: The Federal rules restrict any use of the information to criminally investigate or prosecute any alcohol or drug abuse patient.[facility] the event this information is protected by the Federal Confidentiality of Alcohol and Drug Abuse Patient Records regulations: The Federal rules restrict any use of the information to criminally investigate or prosecute any alcohol or drug abuse patient.[facility] the event this information is protected by the Federal Confidentiality of Alcohol and Drug Abuse Patient Records regulations: The Federal rules restrict any use of the information to criminally investigate or prosecute any alcohol or drug abuse patient.[facility] Reason for Visit (unrecogniz ed section and content) Reason Comments Results Reason Comments Back Pain Patient ambulatory t o ED with c/o lower back pain, noticed upon awakening yesterday. Denies injury or fall. Reports ongoing back issues in which he is treated by chiropractor for many years. C/o pain radiating up spine. Denies bowel or bladder incontinence. Denies paresthesia. Reason Comments back pain continues Reason Comments Outside Ortho Reason Comments Outside Vascular Surgery Reason Comments Outside Imaging Care Teams (unrecognized sec tion and content) Transportation Inspector Relationship Specialty Start Date End Date Pete Starks MD [address] [place], [place] [id number] PCP - General Family Practice 07/25/18 Transportation Inspector Relationship Specialty Start Date End Date Pete Starks MD [address] [place] [address] [phone] PCP - General 04/05/21 Transportation Inspector Relationship Specialty Start Date End Date Pete Starks MD [address] [place], [place] [phone] PCP - General Family Medicine 07/25/18 Transportation Inspector Relationship Specialty Start Date End Date Pete Starks MD [address] [place], [place] [phone] PCP - General Family Medicine 07/25/18 Transportation Inspector Relationship Specialty Start Date End Date Pete Starks MD [address] [place], [place] [phone] PCP - General Family Medicine 07/25/18 Scheduled Active and Recently Administ ered Medications (unrecognized section and content) FOR RECORDS PERTAINING TO PATIENTS WHO ARE OR HAVE BEEN ENROLLED IN A CHEMICAL DEPENDENCY/SUBSTANCEABUSE PROGRAM, SOME INFORMATION MAY BE OMITTED. This clinical summary was aggregated from multiple sources. Caution should be exercised in using it in the provision of clinical care. This summary normalizes information from multiple sources, and as a consequence, information in this document may materially change the coding, format and clinical context of patient data. In addition, data may be omitted in some cases. CLINICAL DECISIONS SHOULD BE BASED ON THE PRIMARY CLINICAL RECORDS. [facility]. provides no warranty or guarantee of the accuracy or completeness of information in this document.
[2024-01-05 07:02] LABS: Hematocrit 47.7 % (40-54); Hemoglobin 16.2 g/dL (13.0-16.5); Mean Corpuscular Hgb 28.6 pg (27.0-32.0); Mean Corpuscular Volume 84.1 fL (80-94); Mean Platelet Vol. 10.1 fl (6.2-12.0); Platelet Count 257 K/mm3 (150-450); RBC Distribution Width CV 11.8 % (11.6-14.6); RBC Distribution Width SD 35.6 fl (35.1-43.9); Red Blood Count 5.67 M/mm3 (4.6-6.2); White Blood Count 9.4 K/mm3 (4.4-11.0)
[2024-01-05 07:16] LABS: Anion Gap 5 (5-15); BUN 10 mg/dL (7-18); BUN/Creat Ratio 9.7 RATIO (10-20); Calcium,Total 9.2 mg/dL (8.5-10.1); Chloride 112 mmol/L (98-107); Creatinine, Serum 1.03 mg/dL (0.70-1.30); EST Glomerular Filtration Rate 89 mL/min (>60); Est Glom Filt Rate - Afr Amer 108 mL/min (>60); Estimated Creatinine Clearance 135.29 ml/min; Glucose 107 mg/dL (74-106); Potassium 4.4 mmol/L (3.5-5.1); Sodium Level 141 mmol/L (136-145)
--- NOTE | 2024-01-05 08:05 | PCM.HP.STD ---
HPI - General HPI Narrative JOSEPH THURMAN, is a 33 M who presents with bilateral varicose veins refractory to compression. He has both deep and superficial reflux. He presents for venogram [facility] Medical History Varicose vein of leg Venous insufficiency Home Medications ibuprofen 800 mg tablet 800 mg PO TID #21 tabs 12/21/19 [Rx Last Taken Unknown] acetaminophen 500 mg tablet (Tylenol Extra Strength) 500 mg PO Q6H PRN pain 09/05/23 [History Last Taken Unknown] dupilumab 300 mg/2 mL subcutaneous syringe (Dupixent) 300 mg subcut Q2W 11/23/23 [History Last Taken Unknown] Allergy/AdvReac Type Severity Reaction Status Date / Time morphine Allergy Hives Verified 11/23/23 15:07 Family History Father Blood clot in leg Pulmonary embolism Surgical History Hx of hernia repair Social History Smoking Status: Never smoker ROS Constitutional Constitutional: Denies chills, fever(s), frequent falls, lethargy or weakness Eyes Eyes: Denies blind spots, change in vision or loss of vision ENT HEENT: Denies bleeding gums, hoarseness or sore throat Cardiovascular Cardiovascular: Denies abdominal pain, bluish discoloration of hand/feet, chest pain with activity, claudication, cold extremities, cyanosis, dyspnea on exertion, erythema on extremities, irregular heart rhythm, leg edema, leg ulcers, numbness in extremities or weakness in extremities Respiratory/Chest Respiratory/Chest: Denies cough, excessive phlegm production, shortness of breath at rest, shortness of breath with exertion or wheezing Gastrointestinal Gastrointestinal: Denies anorexia, change in stool character, constipation, diarrhea, melena or rectal bleeding Genitourinary Genitourinary: Denies dysuria or hematuria Musculoskeletal Musculoskeletal: Denies abnormal gait Integumentary Integumentary: Reports other Details: ; Denies erythema, non-healing lesions or wounds Neurologic Neurologic: Denies abnormal speech, focal weakness, headache(s), loss of vision, numbness, paresthesias or sensory deficit Hematologic/Lymphatic Hematologic/Lymphatic: Denies easy bleeding, easy bruising or lymphadenopathy Vital Signs Vital Signs Vital Signs: Weight Weight: 263 lb Body Mass Index (BMI) 36.6 Physical Exam Const alert, oriented x3, no apparent distress and healthy appearing General Appearance: cooperative; Negative for combative or lethargic Orientation / Consciousness: awake Exam Limitations: no limitations HEENT Head and Scalp: normocephalic and atraumatic Eyes EOMs intact bilaterally General Eye: normal appearance of both eyes Neck full ROM, no lymphadenopathy, thyroid normal and No no carotid bruits General: trachea midline; Negative for lymphadenopathy or tenderness Thyroid: thyroid normal Lymph Lymphatic: Negative for no lymphadenopathy noted Resp normal respiratory effort and no use of accessory muscles Effort and Inspection: Negative for labored, stridor or audible wheezes Cardio regular rate and regular rhythm Back/Spine Cervical Spine: cervical ROM normal Extremity full ROM, normal capillary refill and no clubbing, cyanosis or edema Skin no rashes or lesions noted and no wounds Neuro oriented x3, CN's II-XII intact bilaterally, no focal motor deficits and no sensory deficits noted Psych thought process normal, cooperative, affect normal, speech normal and activity/motor behavior normal Results Lab / Micro Data 01/05/24 06:51 01/05/24 06:51 Labs: Laboratory Results - last 24 hr 01/05/24 06:51: WBC 9.4, RBC 5.67, Hgb 16.2, Hct 47.7, MCV 84.1, MCH 28.6, MCHC 34.0, RDW Std Deviation 35.6, RDW Coeff of Eli 11.8, Plt Count 257, MPV 10.1, Sodium 141, Potassium 4.4, Chloride 112 H, Carbon Dioxide 24.0, Anion Gap 5, BUN 10, Creatinine 1.03, Estim Creat Clear Calc 135.29, Est GFR (MDRD) Af Amer 108, Est GFR (MDRD) Non-Af 89, BUN/Creatinine Ratio 9.7 L, Glucose 107 H, Calcium 9.2 Assessment & Plan Assessment/Plan (1) Venous insufficiency: PLAN: -venogram
--- NOTE | 2024-01-05 10:39 | PCM.OPRPT ---
Report of Operation Date of Procedure: 01/05/24 Pre-Operative Diagnosis: venous insufficiency Post-Operative Diagnosis: same Surgery/Procedure Performed:: venogram IVC IVUS IVC, bilateral common/external iliac veins Surgeon: Ramos Thayer Type of Anesthesia: Local and Sedation,Conscious Estimated Blood Loss (mL): 1 Description of Procedure: HPI: Patient is a 33-year-old male with longstanding bilateral lower extremity painful varicose veins which are refractory to compression therapy. Prior reflux studies revealed reflux in the superficial system bilaterally as well as the deep system on the left. Given the extent and distribution of his reflux he is taken now for venogram to assess for central venous obstruction. Description of procedure: Upon obtaining informed consent and verification correct patient procedure site patient was taken to Director Of Home Economics where he was positioned prepped and draped in usual sterile fashion. Timeout was performed and conscious sedation ministered Versed and fentanyl. Skin overlying the left common femoral vein was anesthetized with 1% lidocaine the vessel accessed with a micropuncture needle wire under ultrasound guidance. This was exchanged for micropuncture sheath routine injection ilio caval venogram was performed which confirmed satisfactory position no extravasation dissection. Through this a Bentson wire advanced and the micropuncture sheath exchanged for a 10 [place] sheath. Through this a intravascular shunt probe was advanced and recorded pullback performed of the IVC, left common iliac vein, left external iliac vein. Appear to be at least some mild compression so the skin overlying the right common femoral. Muscle rhythm without lidocaine the vessel accessed with a micropuncture needle wire. This then changed out for micropuncture sheath through which injection ilio venogram was performed which revealed satisfactory extravasation of dissection. Both iliac veins had normal caliber appearance but obvious retrograde flow consistent with reflux. Through the micro sheath a J-wire to the micro sheath exchanged for an 8 [place] sheath. Intravascular shunt probe was then withdrawn from the left femoral access and into the right femoral access and an intravascular ultrasound recorded pullback was performed of the IVC, right common iliac, right external leg vein. This revealed no significant compression. Most severe compression on the left side was 30% stenosis of the common iliac vein just below the confluence. There was a segment of fibula significantly dilated iliac vein more inferior to this but this was felt to be more likely due to bad reflux and venous hypertension rather than obstructive venous hypertension. The overall caliber at the area of maximum compression was actually nearly normal compared to average common iliac vein diameter. Is felt that none of this warranted intervention so wires and catheters withdrawn. Silk suture then placed at the access sites and the sheath withdrawn followed by 5 minutes of manual pressure. Patient was taken recovery room for bedrest prior to discharge home.
== END 2024-01-05 11:00 | disposition home or self-care (01) ==
PROVIDERS: PCP Family Medicine; Referring Provider Surgery Trauma Surgery; Visit Provider Surgery Trauma Surgery
DX: I87.2 Venous insufficiency (chronic) (peripheral) (principal); I83.813 Varicose veins of bilateral lower extremities with pain
CPT/HCPCS: 36005; 36010; 36415; 37252; 37253; 75820; 75825; 76937; 80048; 85027; 99152; 99153; C1753; C1894; J7040; C1769

== ENCOUNTER 2024-03-01 08:19 | Day surgery (SDC) | payer BC, OTHER, SELFPAY ==
[2024-02-29 14:02] VITALS: BMI 36.9
[2024-03-01 08:51] LABS: Anion Gap 4 (5-15); BUN 13 mg/dL (7-18); BUN/Creat Ratio 14.9 RATIO (10-20); Chloride 110 mmol/L (98-107); Creatinine, Serum 0.87 mg/dL (0.70-1.30); EST Glomerular Filtration Rate 107 mL/min (>60); Est Glom Filt Rate - Afr Amer 130 mL/min (>60); Estimated Creatinine Clearance 160.79 ml/min; Glucose 113 mg/dL (74-106); Potassium 4.1 mmol/L (3.5-5.1); Sodium Level 138 mmol/L (136-145)
--- NOTE | 2024-03-01 10:07 | HP.PCM_ITS ---
HPI - General HPI Narrative JOSEPH THURMAN, is a 33 M who presents with painful left lower extremity varicose veins. He has both deep and superficial reflux and imaging of the central system did not reveal any obstruction. He presents now for chemical ablation. [facility] Medical History Varicose vein of leg Venous insufficiency Home Medications ibuprofen 800 mg tablet 800 mg PO TID #21 tabs 12/21/19 [Rx Last Taken Unknown] acetaminophen 500 mg tablet (Tylenol Extra Strength) 500 mg PO Q6H PRN pain 09/05/23 [History Last Taken Unknown] dupilumab 300 mg/2 mL subcutaneous syringe (AvesthagenixRUSBASE) 300 mg subcut Q2W 11/23/23 [History Last Taken Unknown] Allergy/AdvReac Type Severity Reaction Status Date / Time morphine Allergy Hives Verified 01/23/24 15:30 Family History Father Blood clot in leg Pulmonary embolism Surgical History Hx of hernia repair Social History Smoking Status: Never smoker ROS Constitutional Constitutional: Denies chills, fever(s), frequent falls, lethargy or weakness Eyes Eyes: Denies blind spots, change in vision or loss of vision ENT HEENT: Denies bleeding gums, hoarseness or sore throat Cardiovascular Cardiovascular: Denies abdominal pain, bluish discoloration of hand/feet, chest pain with activity, claudication, cold extremities, cyanosis, dyspnea on exertion, erythema on extremities, irregular heart rhythm, leg edema, leg ulcers, numbness in extremities or weakness in extremities Respiratory/Chest Respiratory/Chest: Denies cough, excessive phlegm production, shortness of breath at rest, shortness of breath with exertion or wheezing Gastrointestinal Gastrointestinal: Denies anorexia, change in stool character, constipation, diarrhea, melena or rectal bleeding Genitourinary Genitourinary: Denies dysuria or hematuria Musculoskeletal Musculoskeletal: Denies abnormal gait Integumentary Integumentary: Reports other Details: ; Denies erythema, non-healing lesions or wounds Neurologic Neurologic: Denies abnormal speech, focal weakness, headache(s), loss of vision, numbness, paresthesias or sensory deficit Hematologic/Lymphatic Hematologic/Lymphatic: Denies easy bleeding, easy bruising or lymphadenopathy Vital Signs Vital Signs Vital Signs: Weight Weight: 265 lb Body Mass Index (BMI) 36.9 Physical Exam Const alert, oriented x3, no apparent distress and healthy appearing General Appearance: cooperative; Negative for combative or lethargic Orientation / Consciousness: awake Exam Limitations: no limitations HEENT Head and Scalp: normocephalic and atraumatic Eyes EOMs intact bilaterally General Eye: normal appearance of both eyes Neck full ROM, no lymphadenopathy, thyroid normal and No no carotid bruits General: trachea midline; Negative for lymphadenopathy or tenderness Thyroid: thyroid normal Lymph Lymphatic: Negative for no lymphadenopathy noted Resp normal respiratory effort, no use of accessory muscles and clear to auscultation bilaterally Effort and Inspection: Negative for labored, stridor or audible wheezes Cardio regular rate and regular rhythm Back/Spine Cervical Spine: cervical ROM normal Extremity full ROM, normal capillary refill and no clubbing, cyanosis or edema Skin no rashes or lesions noted and no wounds Neuro oriented x3, CN's II-XII intact bilaterally, no focal motor deficits and no sensory deficits noted Psych thought process normal, cooperative, affect normal, speech normal and activity/motor behavior normal Results Lab / Micro Data 03/01/24 08:29 Labs: Laboratory Results - last 24 hr 03/01/24 08:29: Sodium 138, Potassium 4.1, Chloride 110 H, Carbon Dioxide 24.0, Anion Gap 4 L, BUN 13, Creatinine 0.87, Estim Creat Clear Calc 160.79, Est GFR (MDRD) Af Amer 130, Est GFR (MDRD) Non-Af 107, BUN/Creatinine Ratio 14.9, Glucose 113 H, Calcium 9.0 Assessment & Plan Assessment/Plan (1) Varicose veins of left lower extremity with pain: PLAN: -plan left chemical ablation
--- NOTE | 2024-03-01 11:48 | PCM.OPRPT ---
Report of Operation Date of Procedure: 03/01/24 Pre-Operative Diagnosis: varicose veins with pain Post-Operative Diagnosis: same Surgery/Procedure Performed:: left GSV chemical ablation Surgeon: Ramos Thayer Type of Anesthesia: Local and Sedation,Conscious Estimated Blood Loss (mL): 5 Description of Procedure: HPI: Patient is a 33-year-old male with left lower extremity painful varicose veins refractory to compression therapy. He had venous duplex studies which revealed significant reflux throughout the great saphenous vein. He presents now for chemical ablation. Description of procedure: Upon obtaining form consent and verification correct patient procedure site patient was taken to the [employer] where he was positioned prepped and draped in usual sterile fashion. Time was then performed conscious sedation administered with Versed and fentanyl. The great saphenous vein was then interrogated with Doppler and found to be in continuity from the mid calf to the saphenofemoral junction. The mid calf inferiorly the vessel was very small in caliber and appeared sclerotic unlikely to accommodate the sheath and catheter. Skin overlying the saphenous vein in the mid calf was anesthetized 1% lidocaine the vessel accessed under ultrasound guidance with micropuncture needle wire. This was then exchanged out for a 7 Portuguese sheath through which ablation delivery guide was advanced and positioned at the saphenofemoral junction. Through this the glue delivery catheter was advanced and then positioned inferior to the saphenofemoral junction per instructions for shear grinder operator. Glue was then deposited along the entirety of the length of the great saphenous vein for the treatment segment. At the completion of treatment the guide and catheter withdrawn followed by the sheath removed and manual pressure held until adequate hemostasis was noted. Dry sterile dressing and compression was then applied the patient was taken recovery room prior to discharge to home
== END 2024-03-01 12:30 | disposition home or self-care (01) ==
PROVIDERS: PCP Family Medicine; Referring Provider Surgery Trauma Surgery; Visit Provider Surgery Trauma Surgery
DX: I83.812 Varicose veins of left lower extremity with pain (principal); I83.90 Asymptomatic varicose veins of unspecified lower extremity
CPT/HCPCS: 36415; 36482; 80048; 99152; 99153; C1894; J7040

== ENCOUNTER → 2024-03-05 | Outpatient (CLI) | payer BC, OTHER, SELFPAY ==
--- NOTE | 2024-03-05 12:58 | VDLE_ITS ---
Reason For Study: Pain LLE, s/p Lt GSV Ablation RIGHT LEFT CFV is compressible, spontaneous, phasic, CFV is compressible, spontaneous, phasic, competent and demonstrates normal competent, and demonstrates normal augmentation. augmentation. Procedure FV is compressible, spontaneous, phasic, This is a venous duplex using B-mode, color competent and demonstrates normal flow and spectral Doppler. augmentation. Exam performed in department. POP V is compressible, spontaneous, phasic, A preliminary report was called and/or faxed competent and demonstrates normal to Rebecca Moore. augmentation. T/P Trunk is compressible. PTV is compressible. LT PerV is compressible. Lt GSV and varicosities are occluded s/p chemical ablation. VL/Venous Duplex US, Unilateral Interpretation Summary Left great saphenous vein occluded consistent with recent ablation. Deep veins of the left lower extremity are patent and compressible segmentally. There is no evidence of left lower extremity deep vein thrombosis. Ordering Physician: Rebecca Moore Referring Physician: Grey Rosenbaum Performed By: Jena Rios, GEORGES, RVT
== END | disposition home or self-care (01) ==
LOC: CVS 12:57
PROVIDERS: PCP Family Medicine; Referring Provider Physician Assistant; Visit Provider Physician Assistant
DX: I87.2 Venous insufficiency (chronic) (peripheral) (principal); I83.893 Varicose veins of bilateral lower extremities with other complications
CPT/HCPCS: 93971